=== PATIENT | male | born 1955 | race Hispanic/Latino ===

== ENCOUNTER → 2024-05-01 | Outpatient (CLI) | payer OTHER | END | disposition home or self-care (01) | LOC: SHCH 13:13 | PROVIDERS: ATTEND Internal Medicine Cardiovascular Disease | DX: I08.3 Combined rheumatic disorders of mitral, aortic and tricuspid valves (principal); R06.09 Other forms of dyspnea; I50.20 Unspecified systolic (congestive) heart failure | CPT/HCPCS: 93306 ==

== ENCOUNTER → 2024-05-01 | Outpatient (CLI) | payer OTHER ==
[2024-05-01 13:07] LABS: ALBUMIN 3.6 g/dL (3.5-5.0); BILIRUBIN,TOTAL 0.6 mg/dL (0.2-1.0); CREATININE 1.2 mg/dL (0.5-1.3); POTASSIUM 3.8 mmol/L (3.5-5.1); TOTAL PROTEIN, SERUM 7.9 g/dL (6.0-8.3)
== END | disposition home or self-care (01) ==
LOC: LAB 09:43
PROVIDERS: ATTEND Internal Medicine Cardiovascular Disease
DX: I50.1 Left ventricular failure, unspecified (principal); I50.9 Heart failure, unspecified
CPT/HCPCS: 36415; 80053; 83880

== ENCOUNTER → 2024-05-26 | Outpatient (CLI) | payer OTHER ==
[2024-05-26 12:40] LABS: ALBUMIN 3.6 g/dL (3.5-5.0); BILIRUBIN,TOTAL 0.6 mg/dL (0.2-1.0); CREATININE 1.2 mg/dL (0.5-1.3); POTASSIUM 4.5 mmol/L (3.5-5.1); TOTAL PROTEIN, SERUM 8.2 g/dL (6.0-8.3)
== END | disposition home or self-care (01) ==
LOC: LAB 09:03
PROVIDERS: ATTEND Internal Medicine Cardiovascular Disease
DX: I50.43 Acute on chronic combined systolic (congestive) and diastolic (congestive) heart failure (principal)
CPT/HCPCS: 36415; 80053; 83880

== ENCOUNTER 2024-10-10 06:30 | Day surgery (SDC) | payer OTHER ==
[2024-10-09 15:53] VITALS: BP 141/76; PULSE 63; RESP 18; TEMP 97.3
[2024-10-09 15:53] LABS: BASOPHILS # (AUTO) 0.02 K/uL (0.00-0.20); BASOPHILS % (AUTO) 0.2 % (0.0-5.0); EOSINOPHILS # (AUTO) 0.21 K/uL (0.00-0.70); EOSINOPHILS % (AUTO) 2.1 % (0.0-8.0); HEMATOCRIT 46.3 % (42-54); IMMATURE GRANULOCYTE ABSOLUTE 0.05 K/uL (0-1); LYMPHOCYTES # (AUTO) 3.3 K/uL (1.0-4.8); LYMPHOCYTES % (AUTO) 32.9 % (21.0-51.0); MEAN CORPUSCULAR HEMOGLOBIN 29.9 pg (27.0-33.0); MEAN CORPUSCULAR HGB CONC 33.5 g/dL (32.0-36.0); MEAN CORPUSCULAR VOLUME 89.2 fL (79-99); MONOCYTES # (AUTO) 0.8 K/uL (0.1-1.0); MONOCYTES % (AUTO) 7.8 % (3.0-13.0); NEUTROPHILS # (AUTO) 5.6 K/uL (1.8-7.7); NEUTROPHILS % (AUTO) 56.5 % (40.0-77.0); PLATELET COUNT (AUTO) 213 K/uL (130-400); RED BLOOD CELL COUNT(AUTO) 5.19 MIL/uL (4.50-6.20); RED CELL DISTRIBUTION WIDTH 13.8 % (11.0-15.5)
[2024-10-09 16:03] LABS: CREATININE 1.3 mg/dL (0.5-1.3); POTASSIUM 4.6 mmol/L (3.5-5.1)
[2024-10-09 16:09] LABS: INR 0.99 (0.85-1.15); PROTHROMBIN TIME 10.7 SEC (9.6-11.6)
[2024-10-09 16:10] LABS: PARTIAL THROMBOPLASTIN TIME 29.4 SEC (26.3-35.5)
[2024-10-10] VITALS (8 sets, daily range): BP systolic 116–150; BP diastolic 73–89; PULSE 60–65; RESP 14–20; TEMP 97–97.8
[~2024-10-10] VITALS: Ht 162.6 cm; Wt 78.8 kg
--- NOTE | 2024-10-10 06:28 | EKG ---
[facility] Test Date: 2024-10-09 Test Time: 16:35:32 Pat Name: GENEVA HUNG Department: [facility] Room: [facility] Gender: M Residential Tech: [id number] : 1955 Requested By: NAVARRO VARELA Order Number: [id number] Reading MD: Jesu Nunes Measurements Intervals [place] Rate: 65 P: 42 [place]: 176 QRS: -28 QRSD: 136 T: -29 QT: 431 QTc: 449 Interpretive Statements Sinus rhythm Right bundle branch block Left ventricular hypertrophy Inferior and anterolateral infarct, possibly acute No previous ECG available for comparison Electronically Signed On 10-10-2024 19:05:16 CASEWORK MANAGER by Jesu Nunes Please click the below link to view image of tracing.
[~2024-10-10 06:30] MED LIST: ALLO100T PO; ASPI-1521 PO; ATOR40TA71 PO; METO-408 PO; PANT40TA54 PO; SACU1TAB7 PO
[2024-10-10] MEDS: 0.9%NACL 1000ML 1,000 ML IV SCH (07:21)
[2024-10-10] MEDS ORDERED: ceFAZolin SODIUM 1 GM VIAL ONE (08:50)
[2024-10-10] MEDS ORDERED: BUPIvacaine/PF 0.25% 30ML VIAL IJ ONE (08:50)
[2024-10-10] MEDS ORDERED: LIDOCAINE HCL 1% MDV 50ML VIAL ONE (08:50)
[2024-10-10] MEDS ORDERED: IOHEXOL-350 50ML VIAL IV ONE (08:50)
[2024-10-10] MEDS ORDERED: FENTanyl CITRate PF 50 MCG/1 ML 2ML VIAL ONE ×2 (09:23→10:40)
[2024-10-10] MEDS ORDERED: MIDAZOLAM HCL 1 MG/ML 2ML VIAL ONE ×4 (09:23→10:47)
[2024-10-10] MEDS ORDERED: acetaMINOPHEN 500 MG TABLET PO PRN (11:30)
[2024-10-10] MEDS ORDERED: acetaMINOPHEN 325 MG TAB PO PRN (11:30)
[2024-10-10] MEDS ORDERED: TRAM50TA4 PO (11:31)
[2024-10-10] MEDS ORDERED: MINO100C6 PO (11:31)
--- NOTE | 2024-10-10 11:46 | NUR ---
DRESSING: DRESSING TO LEFT UPPER CHEST DRY/INTACT WITH NO ACTIVE BLEEDING NOTED. ARM SLING IN PLACE TO LEFT ARM Addendum: 10/10/24 at 1208 by MARCELINO ROSAS RN RN DRESSING> NO REDNESS/SWELLING NOTED TO SURROUNDING AREA LEFT UPPER CHEST
--- NOTE | 2024-10-10 12:02 | NUR ---
DRESSING: DRESSING TO LEFT UPPER CHEST REMAINS DRY/INTACT WITH NO REDNESS/SWELLING NOTED TO SURROUNDING AREA. LEFT ARM IN PLACE TO ARM SLING.
--- NOTE | 2024-10-10 12:17 | NUR ---
DRESSING: DRESSING TO LEFT UPPER CHEST REMAINS DRY/INTACT WITH NO REDNESS/SWELLING NOTED TO SURROUNDING AREA. LEFT ARM IN PLACE TO ARM SLING.
--- NOTE | 2024-10-10 12:32 | NUR ---
DRESSING: DRESSING TO LEFT UPPER CHEST REMAINS DRY/INTACT WITH NO REDNESS/SWELLING NOTED TO SURROUNDING AREA. LEFT ARM IN PLACE TO ARM SLING.
--- NOTE | 2024-10-10 12:47 | NUR ---
DRESSING: DRESSING TO LEFT UPPER CHEST REMAINS DRY/INTACT WITH NO REDNESS/SWELLING NOTED TO SURROUNDING AREA. LEFT ARM IN PLACE TO ARM SLING.
[2024-10-10] MEDS: acetaMINOPHEN WITH coDEINE 1 TAB TAB PO PRN (13:00)
--- NOTE | 2024-10-10 13:17 | HMCIMG ---
CHEST 1VW HISTORY: Pacemaker placement COMPARISON: None FINDINGS: A frontal projection of the chest was obtained. No acute pulmonary infiltrates is seen. Poststernotomy changes are seen. The heart is enlarged. Degenerative changes of the thoracolumbar spine are present. Pacemaker is seen entering from the left. No evidence of aortic calcification is seen. IMPRESSION: 1. No acute pulmonary infiltrate is seen.
--- NOTE | 2024-10-10 13:22 | NUR ---
DRESSING: DRESSING LEFT UPPER CHEST REMAINS DRY/INTACT WITH NO REDNESS/SWELLING NOTED TO SURROUNDING AREA. LEFT ARM IN PLACE OT ARM SLING.
--- NOTE | 2024-10-10 13:26 | NUR ---
CHEST X - RAY: DR. POWELL VIEWED CHEST X-RAY. OK TO DISCHARGE PATIENT HOME.
--- NOTE | 2024-10-10 13:47 | NUR ---
DRESSING: DRESSING LEFT UPPER CHEST REMAINS DRY/INTACT WITH NO REDNESS/SWELLING NOTED TO SURROUNDING AREA. LEFT ARM IN PLACE TO ARM SLING.
== END 2024-10-10 13:55 | disposition home or self-care (01) ==
LOC: DAH 06:30
PROVIDERS: ATTEND Student in an Organized Health Care Education/Training Program
DX: I25.5 Ischemic cardiomyopathy (principal); I11.0 Hypertensive heart disease with heart failure; I50.42 Chronic combined systolic (congestive) and diastolic (congestive) heart failure; E78.00 Pure hypercholesterolemia, unspecified; M10.9 Gout, unspecified; I45.10 Unspecified right bundle-branch block; Z79.01 Long term (current) use of anticoagulants; I25.10 Atherosclerotic heart disease of native coronary artery without angina pectoris; Z95.0 Presence of cardiac pacemaker; Z90.49 Acquired absence of other specified parts of digestive tract; Z98.890 Other specified postprocedural states; Z79.899 Other long term (current) drug therapy
CPT/HCPCS: 80048; 85025; 85610; 85730; 36415; 93005; 33249; 71045; C1721; C1895 ×2; C1894; J3010 ×2; J0690; J7030; J0665; J2250 ×4; J3490; Q9967; A4215; A4222; A4221; A4663; A4216; A4606; A4223 ×3; 99156; 99157